=== PATIENT | male | born 1960 | race Caucasian/White ===

== ENCOUNTER 2019-05-10 18:50 | Emergency (ER) | payer OTHER ==
[~2019-05-10] VITALS: Ht 177.8 cm; Wt 108.9 kg
[~2019-05-10 18:50] MED LIST: HYDROCODON-ACE1 EACH PO; MEDROLDOSEPACK PO
[2019-05-10] MEDS ORDERED: KEFLEX500 M1 PO (20:02)
[2019-05-10 20:12] VITALS: BP 168/87
== END 2019-05-10 20:14 | disposition home or self-care (01) ==
LOC: M.ERS 18:50
DX: S01.511A Laceration without foreign body of lip, initial encounter (principal); R04.0 Epistaxis; Y04.2XXA Assault by strike against or bumped into by another person, initial encounter; Y92.89 Other specified places as the place of occurrence of the external cause; Y93.89 Activity, other specified; Y99.8 Other external cause status